=== PATIENT | male | born 1955 | race Caucasian/White ===

== ENCOUNTER 2024-02-24 15:58 | Outpatient (CLI) | payer MEDICARE, SELFPAY | END 2024-02-24 15:59 | disposition home or self-care (01) | PROVIDERS: Visit Provider Family Medicine | DX: Z00.00 Encounter for general adult medical examination without abnormal findings (principal); R73.9 Hyperglycemia, unspecified; I10 Essential (primary) hypertension; R53.83 Other fatigue; Z12.5 Encounter for screening for malignant neoplasm of prostate | CPT/HCPCS: 80048; 80061; 85025; G0103 ==

== ENCOUNTER 2024-03-09 07:52 | Outpatient (CLI) | payer MEDICARE, SELFPAY ==
--- NOTE | 2024-03-09 09:21 | W.ANESCHARGE ---
Anesthesia Charges Start Date/Time Anesthesia Start Date: 03/09/24 Anesthesia Start Time: 08:45 Stop Date/Time Anesthesia Stop Date: 03/09/24 Anesthesia Stop Time: 09:18
--- NOTE | 2024-03-09 09:35 | W.ANESCHARGE ---
Anesthesia Charges Start Date/Time Anesthesia Start Date: 03/09/24 Anesthesia Start Time: 08:45 Stop Date/Time Anesthesia Stop Date: 03/09/24 Anesthesia Stop Time: 09:18
== END 2024-03-09 07:53 | disposition home or self-care (01) ==
LOC: OP CLINIC 07:53
PROVIDERS: PCP Family Medicine; Visit Provider Surgery
DX: Z12.11 Encounter for screening for malignant neoplasm of colon (principal); K57.30 Diverticulosis of large intestine without perforation or abscess without bleeding; Z80.0 Family history of malignant neoplasm of digestive organs
CPT/HCPCS: 00811; 00812; 45378; J2704

== ENCOUNTER 2025-06-03 08:49 | Outpatient (CLI) | payer MEDICARE, SELFPAY | END 2025-06-03 08:50 | disposition home or self-care (01) | PROVIDERS: PCP Family Medicine; Visit Provider Family Medicine | DX: E11.9 Type 2 diabetes mellitus without complications (principal); I10 Essential (primary) hypertension | CPT/HCPCS: 80048; 80061; 82043; 82570; G0103 ==

== ENCOUNTER 2025-06-25 15:00 | Outpatient (CLI) | payer MEDICARE, SELFPAY ==
--- NOTE | 2025-06-25 15:30 | CRLHL7_ITS ---
For Patients: As a result of the Century Cures Act, medical imaging exams and procedure reports are released immediately into your electronic medical record. You may view this report before your referring provider. If you have questions, please contact your health care provider. CLINICAL INDICATION: Elevated PSA. TECHNIQUE: MRI of the prostate on a 1.5T machine with T1, T2, diffusion-weighted and dynamic post-contrast images obtained. [employer] post-processing software was used for image analysis. FINDINGS: The prostate midline length = 5.4 cm, width at base = 4.1 cm, mid = 4.5 cm, apex = 3.9 cm. Estimated volume = 51 cc. 1.3 x 0.9 x 0.5 cm ill-defined lesion in the anterior transition zone at the level of the mid gland at the 12 o`clock position shows decreased ADC and increased DWI signal. PI-RADS version 2 classification = 4. Suspicious for prostate cancer. No extracapsular extension or seminal vesicle invasion. No amber-prostatic or pelvic side wall adenopathy. No other bony or soft tissue abnormalities identified. IMPRESSION: 1. PI-RADS 4 lesion in the anterior transition zone. REFERENCE: PI-RADS Prostate Imaging - Reporting and Data System 2015 version 2. ACR, the [employer]. Dictated by Sharif Bean MD @ 06/28/2025 10:04:19 AM (Electronically Signed)
== END 2025-06-25 15:01 | disposition home or self-care (01) ==
LOC: MRI 15:01
PROVIDERS: PCP Family Medicine; Visit Provider Family Medicine
DX: R97.20 Elevated prostate specific antigen [PSA] (principal)
CPT/HCPCS: 72197; A9575